=== PATIENT | female | born 1975 | race African-American/Black ===

== ENCOUNTER 2017-02-18 07:54 | Outpatient (CLI) | payer OTHER ==
[~2017-02-18 07:54] MED LIST: FERRIC CARBOXYMALTOSE 750 MG in NORMAL SALINE 250 ML IV PRN; NORMAL SALINE 250 ML IV PRN
[2017-02-18 08:30] VITALS: BP 103/67
== END 2017-02-18 09:27 | disposition home or self-care (01) ==
LOC: II 07:54 → 5TH 07:57 → II 09:27
PROVIDERS: ATTEND Internal Medicine
PROC: 3E033GC Introduction of Other Therapeutic Substance into Peripheral Vein, Percutaneous Approach (ICD-10-PCS; principal; 2017-02-18)
DX: D50.8 Other iron deficiency anemias (principal); K90.9 Intestinal malabsorption, unspecified
CPT/HCPCS: 96365; J7050; J1439

== ENCOUNTER 2017-02-25 07:49 | Outpatient (CLI) | payer OTHER ==
[2017-02-25 08:39] VITALS: BP 94/66
== END 2017-02-25 09:11 | disposition home or self-care (01) ==
LOC: II 07:49 → 5TH 07:49 → II 09:11
PROVIDERS: ATTEND Internal Medicine
PROC: 3E033GC Introduction of Other Therapeutic Substance into Peripheral Vein, Percutaneous Approach (ICD-10-PCS; principal; 2017-02-25)
DX: D50.8 Other iron deficiency anemias (principal); K90.9 Intestinal malabsorption, unspecified
CPT/HCPCS: 96367; J7050; J1439; 96374

== ENCOUNTER 2018-08-18 18:21 | Emergency (ER) | payer OTHER ==
[2018-08-18] MEDS ORDERED: NORMAL SALINE 1000 ML 1,000 ML IV ONE (18:44)
[2018-08-18] MEDS ORDERED: ONDANSETRON HCL INJ/PF 4 MG/2 ML SDV IV ONE (18:45)
--- NOTE | 2018-08-18 18:46 | ER Document Report ---
ED General - General Chief Complaint: Dehydration Stated Complaint: WEAKNESS Time Seen by Provider: 08/18/18 18:32 Primary Care Provider: MATT LOVETT [Primary Care Provider] - Follow up in 3-5 days Notes: Patient is a 42-year-old female with history of anemia that presents to the emergency department for chief complaint of weakness, nausea and vomiting. Patient states that she was driving to go pickle cutter her kids when she got a flat tire, and so he came to help her, while she was waiting there she got lightheaded and felt weak, she states she is having nausea and vomiting over the course of the week, with intermittent fever. She denies any complaint of cough, shortness of breath, chest pain or difficulty breathing, also denies having any urinary complaints such as dysuria hematuria or urinary frequency. Denies having any associated diarrhea. She denies having a headache at this time, just some mild lightheadedness, she states the nausea is improving. Denies any pain at this time. Past Medical History: Anemia Past Surgical History: Social History: Admits to smoking cigarettes daily, denies alcohol or drug use. Family History: Reviewed and noncontributory for presenting illness Allergies: Reviewed, see documented allergy list. REVIEW OF SYSTEMS: Other than noted above, the 12 point review of systems was reviewed with the patient and were negative, all pertinent findings are included in the HPI. PHYSICAL EXAMINATION: Vital signs reviewed, nursing noted reviewed. GENERAL: Well-appearing, well-nourished and in no acute distress. HEAD: Atraumatic, normocephalic. EYES: Eyes appear normal, extraocular movements intact, sclera anicteric, conjunctiva are normal. ENT: nares patent, oropharynx clear without exudates. Somewhat dry mucous membranes. NECK: Normal range of motion, supple without lymphadenopathy LUNGS: Breath sounds clear to auscultation bilaterally and equal. No wheezes rales or rhonchi. HEART: Regular rate and rhythm without murmurs ABDOMEN: Soft, nontender, normoactive bowel sounds. No rebound, guarding, or rigidity. No masses appreciated. EXTREMITIES: Nontender, good range of motion, no pitting or edema. NEUROLOGICAL: No focal neurological deficits. Moves all extremities spontaneously Motor and sensory grossly intact on exam. PSYCH: Normal mood, normal affect. SKIN: Warm, Dry, normal turgor, no rashes or lesions noted on exposed skin TRAVEL OUTSIDE OF THE [place] IN LAST 30 DAYS: No - Related Data Allergies/Adverse Reactions: aspirin [Aspirin] Allergy (Verified 08/18/18 18:55) Past Medical History - Social History Smoking Status: Current Every Day Smoker Family History: Reviewed & Not Pertinent Neurological Medical History: Denies: Hx Seizures Past Surgical History: Reports: Hx Section - x3. Denies: Hx Hystere ctomy - Immunizations Hx Diphtheria, Pertussis, Tetanus Vaccination: Yes Physical Exam - Vital signs Vitals: Pulse Ox 95 08/18/18 18:32 Course - Re-evaluation Re-evalutation: Patient seen and examined vital signs reviewed. Laboratory data and/or imaging were ordered as appropriate for the patient's presenting symptoms and complaint, with consideration of any critical or life threatening conditions that may be associated with their obtained history and exam as noted above. Patient was treated with IV fluids, and IV Zofran, she was reevaluated, was feeling much better Results were reviewed when available and demonstrated significant anemia with a hemoglobin of 6.3, low MCV, low MCHC, patient has a strong history of iron deficiency anemia, states she is on iron supplements, states is been over a year since an iron transfusion. She states that her hemoglobin generally runs around 7, sometimes is lower sometimes is higher. The patient was re-evaluated and was stable, hemodynamically the patient's been stable not tachycardic, her BUN and creatinine are normal, do not suspect acute blood loss anemia, given patient's history, I did discuss with her giving her a unit of blood, and following up with her timber repairer, she was hesitant about this, stating that she does not really want blood, but as an alternative I discussed with her giving her iron transfusion which she was acceptable to. Evaluation was most consistent with lightheadedness, anemia, iron deficiency Results were discussed with the patient at this point, after careful consideration I feel that that patient can be discharged from the emergency department, the patient was educated treatments and reasons to return to the [facility] department based on their presumed diagnosis as noted above, they were advised to followup with a primary care physician in 2-3 days. Patient was agreeable to plan of care. *Note is created using voice recognition software and may contain spelling, syntax or grammatical errors. Laboratory 08/18/18 08/18/18 19:20 19:20 WBC 8.6 RBC 3.74 Hgb 6.3 L Hct 22.0 L MCV 59 L MCH 16.8 L MCHC 28.6 L RDW 20.0 H Plt Count 488 H Total Counted 100 Seg Neutrophils % Not Reportable Seg Neuts % (Manual) 80 H Band Neutrophils % 1 L Lymphocytes % Not Reportable Lymphocytes % (Manual) 15 Monocytes % Not Reportable Monocytes % (Manual) 4 Eosinophils % Not Reportable Eosinophils % (Manual) 0 Basophils % Not Reportable Basophils % (Manual) 0 Absolute Neutrophils Not Reportable Abs Neuts (Manual) 7.0 Absolute Lymphocytes Not Reportable Abs Lymphs (Manual) 1.3 Absolute Monocytes Not Reportable Abs Monocytes (Manual) 0.3 Absolute Eosinophils Not Reportable Absolute Eos (Manual) 0.0 Absolute Basophils Not Reportable Abs Basophils (Manual) 0.0 Nucleated RBCs 1 Platelet Comment INCREASED Polychromasia SLIGHT Hypochromasia 3+ Poikilocytosis 1+ Anisocytosis 2+ Microcytosis 2+ Target Cells 1+ Sodium 137.5 Potassium 4.4 Chloride 105 Carbon Dioxide 26 Anion Gap 7 BUN 9 Creatinine 0.59 Est GFR ( Amer) > 60 Est GFR (Non-Af Amer) > 60 Glucose 86 Calcium 8.8 Total Bilirubin 0.3 Direct Bilirubin 0.2 Neonat Total Bilirubin Not Reportable Neonat Direct Bilirubin Not Reportable Neonat Indirect Bili Not Reportable AST 12 L ALT 16 Alkaline Phosphatase 50 Total Protein 6.1 L Albumin 3.5 - Vital Signs Vital signs: Temp Pulse Resp BP Pulse Ox 98.0 F 18 109/82 94 08/18/18 18:54 08/18/18 21:31 08/18/18 21:31 08/18/18 21:01 - Laboratory Result Diagrams: 08/18/18 19:20 08/18/18 19:20 Laboratory results interpreted by me: 08/18/18 08/18/18 19:20 19:20 Hgb 6.3 L Hct 22.0 L MCV 59 L MCH 16.8 L MCHC 28.6 L RDW 20.0 H Plt Count 488 H Seg Neuts % (Manual) 80 H Band Neutrophils % 1 L AST 12 L Total Protein 6.1 L Discharge - Discharge Clinical Impression: Lightheadedness Iron deficiency anemia Qualifiers: Iron deficiency anemia type: unspecified iron deficiency Qualified Code(s): D50.9 - Iron deficiency anemia, unspecified Condition: Stable Disposition: HOME, SELF-CARE Instructions: Anemia, Iron Deficiency ([facility]) Additional Instructions: Please follow-up with your timber repairer, call for an appointment on Tuesday, if you develop any worsening lightheadedness, dizziness, or feel that your heart is racing, or if you have an episode where you pass out, please return to the emergency department immediately to be reevaluated. Referrals: [facility] [Primary Care Provider] - Follow up in 3-5 days
[2018-08-18 19:49] LABS: MEAN CORPUSCULAR HEMOGLOBIN 16.8 pg (27.0-33.4); MEAN CORPUSCULAR HGB CONC 28.6 g/dL (32.0-36.0); PLATELET COUNT 488 10^3/uL (150-450); RED BLOOD COUNT 3.74 10^6/uL (3.72-5.28); WHITE BLOOD COUNT 8.6 10^3/uL (4.0-10.5)
[2018-08-18 19:51] LABS: MEAN CORPUSCULAR VOLUME 59 fl (80-97)
[2018-08-18 19:53] LABS: HEMOGLOBIN 6.3 g/dL (12.0-15.5)
[2018-08-18 20:05] LABS: ALANINE AMINOTRANSFERASE 16 U/L (9-52); ALBUMIN 3.5 g/dL (3.5-5.0); ALKALINE PHOSPHATASE 50 U/L (38-126); ANION GAP 7 (5-19); ASPARTATE AMINO TRANSFERASE 12 U/L (14-36); BILIRUBIN,DIRECT 0.2 mg/dL (0.0-0.4); BILIRUBIN,TOTAL 0.3 mg/dL (0.2-1.3); BLOOD UREA NITROGEN 9 mg/dL (7-20); CALCIUM 8.8 mg/dL (8.4-10.2); CARBON DIOXIDE 26 mmol/L (22-30); CHLORIDE 105 mmol/L (98-107); GLUCOSE 86 mg/dL (75-110); POTASSIUM 4.4 mmol/L (3.6-5.0); SODIUM 137.5 mmol/L (137-145); TOTAL PROTEIN 6.1 g/dL (6.3-8.2)
[2018-08-18 20:06] LABS: ABSOLUTE LYMPHOCYTES# (MANUAL) 1.3 10^3/uL (0.5-4.7); ABSOLUTE MONOCYTES # (MANUAL) 0.3 10^3/uL (0.1-1.4); BAND NEUTROPHILS % (MANUAL) 1 % (3-5); BASOPHILS % (MANUAL) 0 % (0-2); EOSINOPHILS % (MANUAL) 0 % (0-6); LYMPHOCYTES % (MANUAL) 15 % (13-45); MONOCYTES % (MANUAL) 4 % (3-13); NUCLEATED RED BLOOD CELLS 1 /100 WBC (0); SEGMENTED NEUTROPHILS % (MAN) 80 % (42-78); TOTAL CELLS COUNTED 100
[2018-08-18 20:11] LABS: ANISOCYTOSIS 2+; HYPOCHROMASIA 3+; PLATELET COMMENT INCREASED; POIKILOCYTOSIS 1+; POLYCHROMASIA SLIGHT; TARGET CELLS 1+
[2018-08-18] MEDS ORDERED: IRON SUCROSE COMPLEX INJ/PF 100 MG/5 ML SDV IV ONE (20:13)
[2018-08-18 20:22] LABS: APPEARANCE,URINE CLOUDY; BILIRUBIN,URINE NEGATIVE (NEGATIVE); COLOR,URINE YELLOW; GLUCOSE, URINE NEGATIVE (NEGATIVE); KETONES,URINE NEGATIVE (NEGATIVE); LEUKOCYTE ESTERASE,URINE NEGATIVE (NEGATIVE); NITRITE,URINE NEGATIVE (NEGATIVE); PROTEIN,URINE NEGATIVE (NEGATIVE); URINE SPECIFIC GRAVITY 1.011; UROBILINOGEN,URINE NEGATIVE mg/dL (<2.0)
[2018-08-18] MEDS ORDERED: ONDANSETRON ODT 4 MG TAB (6 TAB/ER DISP) PO PRN (21:18)
[2018-08-18 23:47] VITALS: BP 110/72
[2018-08-21 13:42] LABS: PATH REVIEW PATHOLOGIST REVIEWED
== END 2018-08-18 23:55 | disposition home or self-care (01) ==
LOC: ER 18:21
DX: D50.9 Iron deficiency anemia, unspecified (principal); R53.1 Weakness; R42 Dizziness and giddiness; D64.9 Anemia, unspecified; Z88.6 Allergy status to analgesic agent
CPT/HCPCS: 99283; 96361; 96375; 96365; 96366; 36415; 85025; 80053; 81001; J1756; J2405; J7030

== ENCOUNTER 2019-02-14 15:42 | Emergency (ER) | payer OTHER ==
--- NOTE | 2019-02-14 16:26 | ER Document Report ---
ED Medical Screen (RME) - General Chief Complaint: Urinary Problem Stated Complaint: LEFT LEG PAIN Time Seen by Provider: 02/14/19 16:22 Primary Care Provider: MATT LOVETT [Primary Care Provider] - Follow up as needed Mode of Arrival: Ambulatory Information source: Patient Notes: 43-year-old female presents emergency department with complaints of bilateral flank pain. Reports recent treatment for UTI but feeling worse. Complains of hot and cold sweats chills. Reports she is nauseated denies vomiting diarrhea. Reports it does not hurt as much when she voids. Has been taking Keflex for the UTI. She reports she was instructed to return if symptoms worsen. I have greeted and performed a rapid initial assessment of this patient. A comprehensive ED assessment and evaluation of the patient, analysis of test results and completion of the medical decision making process will be conducted by additional ED providers. Dictation of this chart was performed using voice recognition software; therefore, there may be some unintended grammatical errors. TRAVEL OUTSIDE OF THE [place] IN LAST 30 DAYS: No - Related Data Allergies/Adverse Reactions: fluconazole [From Diflucan] Adverse Reaction (Verified 02/14/19 16:22) Hives Home Medications: Effexor. Acebutelo Past Medical History - Social History Chew tobacco use (# tins/day): No Frequency of alcohol use: None Drug Abuse: None Neurological Medical History: Denies: Hx Seizures Renal/ Medical History: Denies: Hx Peritoneal Dialysis Past Surgical History: Reports: Hx Section - x3. Denies: Hx Hysterectomy - Immunizations Hx Diphtheria, Pertussis, Tetanus Vaccination: Yes Physical Exam - Vital signs Vitals: Temp Pulse Resp BP Pulse Ox 98.0 F 95 18 96/56 L 100 02/14/19 15:56 02/14/19 15:56 02/14/19 15:56 02/14/19 15:56 02/14/19 15:56 Course - Vital Signs Vital signs: Temp Pulse Resp BP Pulse Ox 98.0 F 95 18 96/56 L 100 02/14/19 16:22 02/14/19 16:22 02/14/19 16:22 02/14/19 16:22 02/14/19 16:22 Doctor's Discharge - Discharge Referrals: [facility] [Primary Care Provider] - Follow up as needed
--- NOTE | 2019-02-14 17:35 | RADIOLOGY REPORT (SQ) ---
EXAM DESCRIPTION: U/S RETROPERITON LTD COMPLETED DATE/TIME: 02/14/2019 5:21 pm REASON FOR STUDY: flank pain COMPARISON: None. TECHNIQUE: Dynamic and static grayscale images acquired of the kidneys and bladder and recorded on P ACS. Additional selected color Doppler and spectral images recorded. LIMITATIONS: None. FINDINGS: RIGHT KIDNEY: Normal size, 9.9 cm. Normal echogenicity. No solid or suspicious masses . No hydronephrosis. No calcifications. LEFT KIDNEY: Normal size, 11.2 cm. Normal echogenicity. No solid or suspicious masses. No hydr onephrosis. No calcifications. BLADDER: Bladder is incompletely filled and poorly evaluated. Ureteral jets are not seen. OTHER FINDINGS: No other significant finding. IMPRESSION: Normal renal ultrasound. Bladder is not well evaluated. TECHNICAL DOCUMENTATION: JOB ID: [id number] [employer]- All Rights Reserved Reading location - IP/workstation name: [email or web address]
[2019-02-14 17:58] LABS: HEMATOCRIT 24.4 % (36.0-47.0); MEAN CORPUSCULAR HEMOGLOBIN 17.2 pg (27.0-33.4); MEAN CORPUSCULAR HGB CONC 28.7 g/dL (32.0-36.0); PLATELET COUNT 380 10^3/uL (150-450); RED BLOOD COUNT 4.08 10^6/uL (3.72-5.28); RED CELL DISTRIBUTION WIDTH 20.2 % (11.5-14.0); WHITE BLOOD COUNT 6.1 10^3/uL (4.0-10.5)
[2019-02-14 18:10] LABS: MEAN CORPUSCULAR VOLUME 60 fl (80-97)
[2019-02-14 18:12] LABS: ALBUMIN 4.1 g/dL (3.5-5.0); ALKALINE PHOSPHATASE 49 U/L (38-126); ANION GAP 6 (5-19); ASPARTATE AMINO TRANSFERASE 12 U/L (14-36); BILIRUBIN,DIRECT 0.1 mg/dL (0.0-0.4); BILIRUBIN,TOTAL 0.3 mg/dL (0.2-1.3); BLOOD UREA NITROGEN 10 mg/dL (7-20); CALCIUM 9.1 mg/dL (8.4-10.2); CARBON DIOXIDE 28 mmol/L (22-30); CHLORIDE 104 mmol/L (98-107); GLUCOSE 111 mg/dL (75-110); POTASSIUM 4.3 mmol/L (3.6-5.0); TOTAL PROTEIN 7.3 g/dL (6.3-8.2)
[2019-02-14 18:19] LABS: APPEARANCE,URINE SLIGHTLY-CLOUDY; BILIRUBIN,URINE NEGATIVE (NEGATIVE); COLOR,URINE YELLOW; GLUCOSE, URINE NEGATIVE (NEGATIVE); KETONES,URINE TRACE mg/dL (NEGATIVE); LEUKOCYTE ESTERASE,URINE TRACE (NEGATIVE); NITRITE,URINE NEGATIVE (NEGATIVE); PROTEIN,URINE 100 mg/dL (NEGATIVE); URINE SPECIFIC GRAVITY 1.025
[2019-02-14 18:30] LABS: ABSOLUTE MONOCYTES # (MANUAL) 0.5 10^3/uL (0.1-1.4); BASOPHILS % (MANUAL) 0 % (0-2); EOSINOPHILS % (MANUAL) 1 % (0-6); LYMPHOCYTES % (MANUAL) 13 % (13-45); MONOCYTES % (MANUAL) 8 % (3-13); SEGMENTED NEUTROPHILS % (MAN) 74 % (42-78); TOTAL CELLS COUNTED 100
[2019-02-14 18:32] LABS: ANISOCYTOSIS 2+; PLATELET COMMENT ADEQUATE; TARGET CELLS SLIGHT; TEAR DROP CELLS 1+
[2019-02-15] MEDS ORDERED: NORMAL SALINE 250 ML IV PRN ×2 (00:26)
--- NOTE | 2019-02-15 00:28 | ER Document Report ---
ED General - General Chief Complaint: Near Syncope Stated Complaint: LEFT LEG PAIN Time Seen by Provider: 02/14/19 16:22 Primary Care Provider: RIAZ PARIKH MD [ACTIVE STAFF] - Follow up tomorrow Mode of Arrival: Ambulatory Notes: Patient is a 43-year-old female that comes emergency department for chief complaint of an episode earlier where she felt lightheaded and almost passed out. She states she felt her vision blurring and she did not feel better until she placed her head down on table. She denies chest pain, difficulty breathing, or passing out. She denies any other complaints. She states she has a known history of anemia requiring frequent transfusions, she states she has had full work-ups including biopsies and colonoscopy and they could not find a cause, she has had this for many years now. She takes iron supplements at home. She follows with the OR. She denies any daily medications otherwise. TRAVEL OUTSIDE OF THE [place] IN LAST 30 DAYS: No - Related Data Allergies/Adverse Reactions: aspirin Allergy (Verified 02/14/19 18:21) Home Medications: Effexor. Acebutelo Past Medical History - General Information source: Patient - Social History Smoking Status: Never Smoker Chew tobacco use (# tins/day): No Frequency of alcohol use: None Drug Abuse: None Lives with: Family Family History: Reviewed & Not Pertinent Patient has suicidal ideation: No Patient has homicidal ideation: No Neurological Medical History: Denies: Hx Seizures Renal/ Medical History: Denies: Hx Peritoneal Dialysis Past Surgical History: Reports: Hx Section - x3. Denies: Hx Hysterectomy - Immunizations Hx Diphtheria, Pertussis, Tetanus Vaccination: Yes Review of Systems - Review of Systems Constitutional: See HPI EENT: No symptoms reported Cardiovascular: See HPI Respiratory: No symptoms reported Gastrointestinal: No symptoms reported Genitourinary: No symptoms reported Female Genitourinary: See HPI Musculoskeletal: No symptoms reported Skin: No symptoms reported Hematologic/Lymphatic: No symptoms reported Neurological/Psychological: No symptoms reported Physical Exam - Vital signs Vitals: Temp Pulse Resp BP Pulse Ox 98.0 F 95 18 96/56 L 100 02/14/19 15:56 02/14/19 15:56 02/14/19 15:56 02/14/19 15:56 02/14/19 15:56 - Notes Notes: GENERAL: Alert, interacts well. No acute distress. Thin HEAD: Normocephalic, atraumatic. EYES: Pupils equal, round, and reactive to light. Extraocular movements intact. ENT: Oral mucosa moist, tongue midline. Oropharynx unremarkable. Airway patent. LUNGS: Clear to auscultation bilaterally, no wheezes, rales, or rhonchi. No respiratory distress. HEART: Regular rate and rhythm. No murmur ABDOMEN: Soft, non-tender. Non-distended. EXTREMITIES: Moves all 4 extremities spontaneously. No edema, normal radial and dorsalis pedis pulses bilaterally. No cyanosis. BACK: no cervical, thoracic, lumbar midline tenderness. No saddle anesthesia, normal distal neurovascular exam. Moves all extremities in full range of motion. NEUROLOGICAL: Alert and oriented x3. Normal speech. Cranial nerves II through XII grossly intact. PSYCH: Normal affect, normal mood. SKIN: Warm, dry, normal turgor. No rashes or lesions noted. Course - Re-evaluation Re-evalutation: Patient is hypotensive in the 80s and 90s systolic. She is not tachycardic. She states when she stands she gets lightheaded and she states she almost passed out earlier. She did not have shortness of breath, palpitations, or chest pain. EKG unremarkable. CBC shows anemia at 7, patient ranges from 6-8.6 on previous hemoglobin levels so this is not extremely different. Chemistry generally unremarkable. Urinalysis showing some dehydration. Discussed with patient. She states she would prefer to get a transfusion because of her symptoms. I discussed with Dr. Montes. Because of symptomatic anemia, hypotension, patient will be transfused. Hypotension resolved after transfusion, on reevaluation patient has no complaints. She states she will follow-up with local hematology, discussed return precautions. She will continue iron. Patient states understanding and agreement with plan. Note: I believe patient had a renal ultrasound performed incorrectly from a triage area, I did apologize to the patient for this, I discussed with nurse broiler manager and I am informed that patient will not be charged for this study. - Vital Signs Vital signs: Temp Pulse Resp BP Pulse Ox 98.8 F 80 17 102/69 99 02/15/19 06:11 02/15/19 06:11 02/15/19 06:11 02/15/19 06:11 12/05/19 06:11 - Laboratory Result Diagrams: 02/14/19 17:30 02/14/19 17:30 Laboratory results interpreted by me: 02/14/19 02/14/19 02/14/19 17:23 17:30 17:30 Hgb 7.0 L Hct 24.4 L MCV 60 L MCH 17.2 L MCHC 28.7 L RDW 20.2 H Glucose 111 H AST 12 L Urine Protein 100 H Urine Ketones TRACE H Urine Urobilinogen 4.0 H Ur Leukocyte Esterase TRACE H Crossmatch 02/14/19 18:37 Hgb Hct MCV MCH MCHC RDW Glucose AST Urine Protein Urine Ketones Urine Urobilinogen Ur Leukocyte Esterase Crossmatch See Detail - EKG Interpretation by Me Additional EKG results interpreted by me: EKG shows sinus rhythm at a rate of 78, QTC of 429, normal axis, no T wave inversions or ST segment changes in consecutive leads Discharge - Discharge Clinical Impression: Near syncope Anemia Qualifiers: Anemia type: unspecified type Qualified Code(s): D64.9 - Anemia, unspecified Condition: Stable Disposition: HOME, SELF-CARE Additional Instructions: You have been transfused because of your low blood pressure, dizziness symptoms, and almost passing out. Please follow-up closely with the hematology referral for additional evaluation and management of your anemia. Come back if you are worse including difficulty breathing, passing out, or any other concerning or worsening symptoms. Forms: Return to Work Referrals: RIAZ PARIKH MD [ACTIVE STAFF] - Follow up tomorrow
[2019-02-15 06:13] VITALS: BP 102/69
[2019-02-15 10:37] LABS: PATH REVIEW PATHOLOGIST REVIEWED
--- NOTE | 2019-02-15 19:13 | EKG REPORT ---
SEVERITY:- NORMAL ECG - SINUS RHYTHM : Confirmed by: Tonya Menchaca MD 15-Feb-2019 19:13:04
== END 2019-02-15 06:11 | disposition home or self-care (01) ==
LOC: ER 15:42
DX: D64.9 Anemia, unspecified (principal); I95.9 Hypotension, unspecified; E86.0 Dehydration; R55 Syncope and collapse; Z79.899 Other long term (current) drug therapy; Z88.8 Allergy status to other drugs, medicaments and biological substances
CPT/HCPCS: 93005; 99284; 96360; 86900; 86901; 36415; 87086; 36430; 86850; 85025; 81025; 80053; 81001; 86920; 76775; 93010; P9016; J7050

== ENCOUNTER → 2019-06-14 | Outpatient (CLI) | payer OTHER ==
--- NOTE | 2019-06-14 10:20 | RADIOLOGY REPORT (SQ) ---
EXAM DESCRIPTION: CT CHEST WITH; CT ABD/PELVIS WITH IV ORAL IMAGES COMPLETED DATE/TIME: 06/14/2019 9:34 am REASON FOR STUDY: CHEST PAIN; PELVIC AND PERINEAL PAIN R07.9 CHEST PAIN, UNSPECIFIED R10.2 PELVIC AND PERINEAL PAIN R10.9 UNSPECIFIED ABDOMINAL PAIN COMPARISON: Bilateral renal ultrasound 02/14/2019 CONTRAST TYPE AND DOSE: contrast/concentration: Isovue 350.00 mg/ml; Total Contrast Delivered: 67.0 ml; Total Saline Delivered: 65.0 ml RENAL FUNCTION: None required. The patient is less than 50 years old. TECHNIQUE: CT scan of the chest performed using helical scanning technique with dynamic intravenous contrast injection. Images reviewed with lung, soft tissue and bone windows. Reconstructed coronal a nd sagittal MPR images reviewed. All images stored on PACS. CT scan of the abdomen and pelvis performed with intravenous and with oral contrastusing helical scan stephen technique with dynamic intravenous contrast injection. Images reviewed with lung, soft tissue a nd bone windows. Reconstructed coronal and sagittal MPR images reviewed. Delayed images for evaluat ion of the urinary system also acquired and evaluated. All images stored on PACS. All CT scanners at this facility use dose modulation, iterative reconstruction, and/or weight based d osing when appropriate to reduce radiation dose to as low as reasonably achievable (ALARA). [facility]: Dose Right [facility]: CareDose [facility]: Dose Right [facility]: Teradose 4D [facility]: [employer] RADIATION DOSE: CT Rad equipment meets quality standard of care and radiation dose reduction techniq ues were employed. CTDIvol: 4.4 - 4.5 mGy. DLP: 840 mGy-cm. . LIMITATIONS: None. FINDINGS: CHEST: LUNGS AND PLEURA: In the posterior left upper lobe, a 6 mm subpleural noncalcified irregularly-shaped nodule is present on axial image 37 and coronal reconstruction image 56. Remainder of the lungs are well inflated and clear. Airways no pleural effusion. No pneumothorax HILAR AND MEDIASTINAL STRUCTURES: No identified masses or abnormal nodes. HEART AND VASCULAR STRUCTURES: No aneurysm or dissection. No central pulmonary emboli. No pericardi al effusion. HARDWARE: None. THYROID AND OTHER SOFT TISSUES: No masses. No adenopathy. BONES: No significant finding. OTHER: No other significant finding. ABDOMEN AND PELVIS: LIVER: Normal size. No masses. No dilated ducts. Benign subcentimeter cysts left lobe liver at the gallbladder fossa SPLEEN: Normal size. No focal lesions. PANCREAS: No masses. No significant calcifications. No adjacent inflammation or peripancreatic fluid collections. Pancreatic duct not dilated. GALLBLADDER: No identified stones by CT criteria. No inflammatory changes to suggest cholecystitis. ADRENAL GLANDS: No significant masses or asymmetry. RIGHT KIDNEY AND URETER: No solid masses. No significant calcification. No hydronephrosis or hydroure ter. LEFT KIDNEY AND URETER: No solid masses. No significant calcification. No hydronephrosis or hydrouret er. AORTA AND VESSELS: No aneurysm. No dissection. Renal arteries, SMA, celiac without stenosis. RETROPERITONEUM: No retroperitoneal adenopathy, hemorrhage or masses. BOWEL AND PERITONEAL CAVITY: No masses or inflammatory changes. No free fluid or peritoneal masses. APPENDIX: Not identified. No right lower quadrant inflammatory change ABDOMINAL WALL: No masses. No hernias. PELVIS: No mass or free fluid. Normal bladder. Normal size uterus and ovaries. 3 cm rightward uter ine body fibroid, 2 cm right ovary cyst. Bilateral peroneal Bard needle gland cysts are present, 2.3 cm on the right, 1.6 cm on the left BONES: No significant or acute findings. OTHER: No other significant finding. IMPRESSION: No acute findings over the chest abdomen or pelvis. 6 mm nodule left lung apex. Follow-up CT recommended COMMENT: FLEISCHNER CRITERIA FOR FOLLOW-UP OF PULMONARY NODULES Incidentally detected new nodules in persons 35 or older. HIGH RISK: History of smoking or other known risk factors. 6-8 mm single solid nodule: LOW RISK: CT 12 mo; then consider CT 18-24 mo. HIGH RISK: CT 6-12 mo; th en CT 18-24 mo. TECHNICAL DOCUMENTATION: JOB ID: [id number] Quality ID # [id number]: Final reports with documentation of one or more dose reduction techniques (e.g., Au tomated exposure control, adjustment of the mA and/or kV according to patient size, use of iterative reconstruction technique) 2010 [employer]- All Rights Reserved Reading location - IP/workstation name: [email or web address]
== END ==
LOC: RAD 08:44
PROVIDERS: ATTEND Physician Assistant Medical
DX: R07.9 Chest pain, unspecified (principal); R10.2 Pelvic and perineal pain; R10.9 Unspecified abdominal pain; N93.9 Abnormal uterine and vaginal bleeding, unspecified; R91.1 Solitary pulmonary nodule
CPT/HCPCS: 71260; 74177

== ENCOUNTER → 2019-11-26 | Outpatient (CLI) | payer OTHER ==
--- NOTE | 2019-11-26 09:48 | RADIOLOGY REPORT (SQ) ---
EXAM DESCRIPTION: CT CHEST WITHOUT IMAGES COMPLETED DATE/TIME: 11/26/2019 9:10 am REASON FOR STUDY: CHEST PAIN R07.9 CHEST PAIN, UNSPECIFIED COMPARISON: 06/14/2019 TECHNIQUE: CT scan performed of the chest without intravenous contrast. Images reviewed with lung, soft tissue and bone windows. Reconstructed coronal and sagittal MPR images reviewed. All images st ored on PACS. All CT scanners at this facility use dose modulation, iterative reconstruction, and/or weight based d osing when appropriate to reduce radiation dose to as low as reasonably achievable (ALARA). [facility]: Dose Right [facility]: CareDose [facility]: Dose Right [facility]: Teradose 4D [facility]: [employer] RADIATION DOSE: CT Rad equipment meets quality standard of care and radiation dose reduction techniq ues were employed. CTDIvol: 3.0 mGy. DLP: 122 mGy-cm. mGy. LIMITATIONS: No technical limitations. FINDINGS: LUNGS AND PLEURA: Stable left upper lobe pulmonary nodule measuring 5 mm (series 4, image 37). No new discrete nodules or masses. No pleural effusion. No focal airspace disease. No pneumo thorax. HILAR AND MEDIASTINAL STRUCTURES: No identified masses or abnormal nodes. No obvious aneurysm. HEART AND VASCULAR STRUCTURES: No aneurysm. No pericardial effusion. UPPER ABDOMEN: No significant findings. Limited exam. THYROID AND OTHER SOFT TISSUES: No masses. No adenopathy. BONES: No acute bony abnormality. No suspicious lytic or blastic osseous lesions. HARDWARE: None in the chest. OTHER: No other significant findings. IMPRESSION: 1. No evidence of acute intrathoracic process. 2. Stable previously described left upper lobe pulmonary nodule. COMMENT: FLEISCHNER CRITERIA FOR FOLLOW-UP OF PULMONARY NODULES Incidentally detected new nodules in persons 35 or older. HIGH RISK: History of smoking or other known risk factors. 6-8 mm single solid nodule: LOW RISK: CT 6-12 mo; then consider CT 18-24 mo. HIGH RISK: CT 6-12 mo; t hen CT 18-24 mo. TECHNICAL DOCUMENTATION: JOB ID: [id number] Quality ID # [id number]: Final reports with documentation of one or more dose reduction techniques (e.g., Au tomated exposure control, adjustment of the mA and/or kV according to patient size, use of iterative reconstruction technique) 2010 [employer]- All Rights Reserved Reading location - IP/workstation name: [email or web address]
== END ==
LOC: RAD 09:02
PROVIDERS: ATTEND Internal Medicine
DX: R07.9 Chest pain, unspecified (principal); R91.1 Solitary pulmonary nodule
CPT/HCPCS: 71250